=== PATIENT | female | born 1985 | race Caucasian/White ===

== ENCOUNTER 2017-05-18 09:06 | Emergency (ER) | payer BC ==
[2017-05-18 09:17] VITALS: BP 125/73
--- NOTE | 2017-05-18 09:27 | UC ---
Respiratory Complaint HPI - HPI Summary HPI Summary: Patient urgent care today with cough and nasal drainage chest congestion and body aches sore throat low-grade temp. 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 - History of Current Complaint Chief Complaint: UCGeneralIllness Stated Complaint: chest and sinus congestion Time Seen by Provider: 05/18/17 09:23 Hx Obtained From: Patient Hx Last Menstrual Period: 2 weeks ?: No Onset/Duration: Sudden Onset, Lasting Days - 2-3, Still Present Timing: Constant Severity Initially: Moderate Severity Currently: Moderate Pain Intensity: 5 Pain Scale Used: 0-10 Numeric Character: Cough: Productive Aggravating Factors: Nothing Alleviating Factors: OTC Meds Associated Signs And Symptoms: Positive: Fever, Chills, Pleuritic Chest Pain, URI, Nasal Congestion, Sinus Discomfort - Allergies/Home Medications Allergies/Adverse Reactions: Allergies Allergy/AdvReac Type Severity Reaction Status Date / Time Penicillins Allergy Intermediate Hives Verified 05/18/17 09:17 Home Medications: Home Medications Ibuprofen 400 mg PO Q6HR PRN 05/18/17 [History Confirmed 05/18/17] PMH/Surg Hx/FS Hx/Imm Hx Previously Healthy: Yes - Surgical History Surgical History: Yes Surgery Procedure, Year, and Place: Left knee - Family History Known Family History: Positive: None - Social History Occupation: Employed Full-time Alcohol Use: Occasionally Substance Use Type: None Smoking Status (MU): Never Smoked Tobacco - Immunization History Most Recent Influenza Vaccination: not in 2017/2017 season Most Recent Tetanus Shot: UTD Review of Systems Constitutional: Fever, Chills, Fatigue Skin: Negative Eyes: Negative ENT: Sore Throat, Nasal Discharge, Sinus Congestion Respiratory: Cough Cardiovascular: Negative Gastrointestinal: Negative Genitourinary: Negative Motor: Negative Neurovascular: Negative Musculoskeletal: Arthralgia, Myalgia Neurological: Headache Psychological: Negative Is Patient Immunocompromised?: No All Other Systems Reviewed And Are Negative: Yes Physical Exam Triage Information Reviewed: Yes Appearance: No Pain Distress, Well-Nourished, Ill-Appearing Vital Signs: Initial Vital Signs Temp 99.9 F 05/18/17 09:10 Pulse 100 05/18/17 09:10 Resp 18 05/18/17 09:10 BP 125/73 05/18/17 09:10 Pulse Ox 100 05/18/17 09:10 Vital Signs Reviewed: Yes Eye Exam: Normal Eyes: Positive: Conjunctiva Clear ENT Exam: Normal ENT: Positive: Normal ENT inspection, Hearing grossly normal, Pharynx normal, Nasal congestion, Nasal drainage, TMs normal, Sinus tenderness, Uvula midline. Negative: Tonsillar swelling, Tonsillar exudate, Trismus, Muffled voice, Hoarse voice, Dental tenderness Dental Exam: Normal Neck exam: Normal Neck: Positive: Supple, Nontender, No Lymphadenopathy Respiratory Exam: Normal Respiratory: Positive: Chest non-tender, Lungs clear, Normal breath sounds, No respiratory distress, No accessory muscle use Cardiovascular Exam: Normal Cardiovascular: Positive: RRR, No Murmur, Pulses Normal, Brisk Capillary Refill Musculoskeletal Exam: Normal Musculoskeletal: Positive: Strength Intact, ROM Intact, No Edema Neurological Exam: Normal Neurological: Positive: Alert, Muscle Tone Normal Psychological Exam: Normal Skin Exam: Normal UC Diagnostic Evaluation - Laboratory O2 Sat by Pulse Oximetry: 100 Diagnostic Studies Comment: Influenza A- influenza B-positive, UA lysed RBCs specific gravity 1.02 Respiratory Course/Dx - Course Course Of Treatment: Rest increase fluids Tylenol ibuprofen for pain patient refuses Tamiflu off work for the week follow with primary care provider when necessary - Differential Dx/Diagnosis Provider Diagnoses: Influenza B, dehydration Discharge - Discharge Plan Condition: Stable Disposition: HOME Prescriptions: Oseltamivir CAP* [Tamiflu CAP*] 75 mg PO BID #10 cap Patient Education Materials: Dehydration (ED), Influenza (ED) Forms: *Work Release Referrals: [facility] [place] PHYSICIAN REFERRAL [Outside] - If Needed
== END 2017-05-18 10:00 | disposition home or self-care (01) ==
LOC: UCEAST 09:06
DX: J10.1 Influenza due to other identified influenza virus with other respiratory manifestations (principal); E86.0 Dehydration; Z32.02 Encounter for pregnancy test, result negative; Z88.0 Allergy status to penicillin
CPT/HCPCS: 81003; 84702; 87502; 99212; G0463

== ENCOUNTER 2018-08-09 14:48 | Emergency (ER) | payer BC ==
[2018-08-09 15:26] VITALS: BP 108/73
--- NOTE | 2018-08-09 15:30 | UC ---
Lower Extremity/Ankle HPI - HPI Summary HPI Summary: 33 yo female presents with LEFT foot pain s/p injury one week ago. She tells me that she was walking her dog and when she stepped on her left foot she felt a pop on the lateral aspect and has had pain there ever since. She has rested, elevated, and iced the area with no relief. Today she was walking and felt a sharp pain in this same area and thinks the pain is worsening. She is weight bearing and ambulating without assistance. - History of Current Complaint Chief Complaint: UCLowerExtremity Stated Complaint: FOOT INJURY Time Seen by Provider: 08/09/18 15:30 Hx Obtained From: Patient Hx Last Menstrual Period: currently Onset/Duration: Sudden Onset Severity Initially: Severe Severity Currently: Severe Pain Intensity: 8 Pain Scale Used: 0-10 Numeric Aggravating Factor(s): Standing, Ambulation Able to Bear Weight: Yes - Allergies/Home Medications Allergies/Adverse Reactions: Allergies Allergy/AdvReac Type Severity Reaction Status Date / Time Penicillins Allergy Intermediate Hives Verified 08/09/18 15:26 peanut Allergy Hives Verified 08/09/18 15:26 wasps Allergy Hives Uncoded 08/09/18 15:26 PMH/Surg Hx/FS Hx/Imm Hx - Additional Past Medical History Additional PMH: None - Surgical History Surgical History: Yes Surgery Procedure, Year, and Place: Left knee - Family History Known Family History: Positive: None - Social History Occupation: Employed Full-time Lives: With Family Alcohol Use: Rare Substance Use Type: None Smoking Status (MU): Never Smoked Tobacco - Immunization History Most Recent Influenza Vaccination: not in 2017/2017 season Most Recent Tetanus Shot: UTD Review of Systems All Other Systems Reviewed And Are Negative: Yes Constitutional: Positive: Negative Skin: Positive: Negative Respiratory: Positive: Negative Cardiovascular: Positive: Negative Neurovascular: Positive: Negative Musculoskeletal: Positive: Other: - Left foot pain Neurological: Positive: Negative Psychological: Positive: Negative Physical Exam - Summary Physical Exam Summary: GENERAL: NAD. WDWN. No pain distress. SKIN: No rashes, sores, lesions, or open wounds. CHEST: No accessory muscle use. Breathing comfortably and in no distress. CV: Pulses intact PT and DP. Cap refill <2seconds MSK: LEFT FOOT: Mild TTP at base of 4th and 5th MT. FROM, but pain worse with inversion and plantar flexion. Strength 5/5. No edema or obvious bony deformities. Left ankle NTTP. NEURO: Alert. Sensations intact and symmetric B/L LEs PSYCH: Age appropriate behavior. Triage Information Reviewed: Yes Vital Signs: Initial Vital Signs Temp 98.6 F 08/09/18 15:23 Pulse 75 08/09/18 15:23 Resp 14 08/09/18 15:23 BP 108/73 08/09/18 15:23 Pulse Ox 100 08/09/18 15:23 Vital Signs Reviewed: Yes Lower Extremity Course/Dx - Course Course Of Treatment: XR: IMPRESSION: NO ACUTE OSSEOUS INJURY. IF SYMPTOMS PERSIST, RECOMMEND REPEAT IMAGING. Discussed results with pt. Given her prolonged and worsening symptoms - discussed obtaining CT today, but pt prefers to hold off on this. Will place her in a CAM boot and have her f/u with Orthopedics for further eval. - Differential Dx/Diagnosis Provider Diagnosis: Foot pain Discharge - Sign-Out/Discharge Documenting (check all that apply): Patient Departure All imaging exams completed and their final reports reviewed: Yes - Discharge Plan Condition: Stable Disposition: HOME Patient Education Materials: Foot Sprain (ED) Referrals: No Primary Care Phys,NOPCP [Primary Care Provider] - Jair Jones MD [Medical Doctor] - As Soon As Possible Additional Instructions: If you develop a fever, shortness of breath, chest pain, new or worsening symptoms - please call your PCP or go to the ED immediately. 1) Rest and apply ice to your foot intermittently throughout the day 2) Use the CAM boot as much as possible 3) I recommend that you follow up with Orthopedics later this week or early next week for a recheck of your foot pain - Billing Disposition and Condition Condition: STABLE Disposition: Home
== END 2018-08-09 16:34 | disposition home or self-care (01) ==
LOC: UCEAST 14:48
DX: M79.672 Pain in left foot (principal); Z88.0 Allergy status to penicillin
CPT/HCPCS: 99212; G0463